=== PATIENT | female | born 1980 | race Caucasian/White ===

== ENCOUNTER 2017-12-01 10:14 | Outpatient (CLI) | payer OTHER | END 2017-12-01 10:15 | disposition home or self-care (01) | LOC: BICRAD 10:14 | PROVIDERS: ATTEND Internal Medicine Gastroenterology | DX: Q76.6 Other congenital malformations of ribs (principal); R10.13 Epigastric pain ==

== ENCOUNTER 2020-11-19 19:42 | Emergency (ER) | payer OTHER ==
[2020-11-19] MEDS ORDERED: Ibuprofen 800 MG TAB ONE (21:01)
== END 2020-11-19 21:23 | disposition home or self-care (01) ==
LOC: ERS 19:42
DX: S46.012A Strain of muscle(s) and tendon(s) of the rotator cuff of left shoulder, initial encounter (principal); G43.909 Migraine, unspecified, not intractable, without status migrainosus; X50.9XXA Other and unspecified overexertion or strenuous movements or postures, initial encounter

== ENCOUNTER 2021-01-17 12:35 | Outpatient (CLI) | payer OTHER | END 2021-01-17 12:36 | disposition home or self-care (01) | LOC: ULT 12:35 | PROVIDERS: ATTEND Physician Assistant Medical | DX: R10.13 Epigastric pain (principal); R11.0 Nausea; K21.9 Gastro-esophageal reflux disease without esophagitis; R19.7 Diarrhea, unspecified; K83.8 Other specified diseases of biliary tract | CPT/HCPCS: 76705 ==

== ENCOUNTER 2021-01-25 08:30 | Outpatient (CLI) | payer OTHER ==
[2021-01-25] MEDS ORDERED: Magnevist 469MG/ML 20 ML VIAL ONE (10:55)
== END 2021-01-25 08:31 | disposition home or self-care (01) ==
LOC: MRI 08:30
PROVIDERS: ATTEND Physician Assistant Medical
DX: K83.8 Other specified diseases of biliary tract (principal); R93.89 Abnormal findings on diagnostic imaging of other specified body structures; N28.1 Cyst of kidney, acquired
CPT/HCPCS: 74183; A9579